=== PATIENT | female | born 1965 | race Two or more races ===

== ENCOUNTER 2023-08-15 15:42 | Emergency (ER) | payer OTHER ==
[~2023-08-15] VITALS: PULSE 86; RESP 18; TEMP 98.2; Ht 167.6 cm; Wt 149.0 kg
[2023-08-15] MEDS ORDERED: SODIUM CHLORIDE 0.9% 500 ML IVB ONE (16:15)
[2023-08-15] MEDS ORDERED: SODIUM CHLORIDE 0.9% 1,000 ML IV ONE (16:15)
[2023-08-15 16:37] LABS: Basophils # (auto) 0.1 10 ^3/uL (0-0.2); Basophils % (auto) 0.5 % (0.0-2.0); Eosinophils # (auto) 0.1 10 ^3/uL (0-0.8); Eosinophils % (auto) 0.5 % (0.0-7.0); Hematocrit 51.5 % (36.0-46.0); Hemoglobin 17.4 g/dL (12.2-16.2); Lymphocytes # (auto) 1.7 10 ^3/uL (0.4-5.4); Lymphocytes % (auto) 15.5 % (10.0-50.0); Mean Corpuscular Hgb Conc. 33.7 g/dL (32.0-36.0); Monocytes # (auto) 0.9 10 ^3/uL (0-1.3); Monocytes % (auto) 7.9 % (0.0-12.0); Neutrophils # (auto) 8.3 10 ^3/uL (1.6-8.6); Neutrophils % (auto) 75.6 % (37.0-80.0); Nucleated Red Blood Cells % 0.7 %; Red Blood Cells 5.79 10^6/uL (4.0-5.20)
[2023-08-15 17:06] LABS: Anion Gap 8 (5-15); Lipase 46 U/L (12-53)
[2023-08-15 17:17] LABS: Alkaline Phosphatase 67 U/L (46-116); Aspartate Aminotransferase 56 U/L (13-40); Blood Urea Nitrogen 9 mg/dL (9-23); Carbon Dioxide 26 mmol/L (20-30); Chloride 104 mmol/L (98-107); Glucose 115 mg/dL (74-106); Potassium 3.8 mmol/L (3.5-5.1); Sodium 138 mmol/L (136-145)
[2023-08-15 17:18] LABS: Alanine Aminotransferase 77 U/L (7-40); BUN/Creatinine Ratio 9.7 (10.0-20.0); Bilirubin, Total 1.7 mg/dL (0.2-1.0); Calcium 10.4 mg/dL (8.7-10.4); Total Protein 8.3 g/dL (5.7-8.2)
[2023-08-15] MEDS ORDERED: IOHEXOL 300 MG/ML 100ML BOTTLE IJ ONE (20:10)
[2023-08-15 20:29] LABS: Urine Bacteria MANY /hpf (None Seen); Urine Blood Negative /uL (Negative); Urine Clarity CLOUDY (Clear); Urine Color Yellow (Yellow); Urine Mucus FEW (None Seen); Urine Protein, UAD 1+ (Negative); Urine WBC 23 /hpf (0 - 5); Urine WBC Clumps PRESENT /hpf (None Seen); Urine pH 5.5 (5.0-8.0)
[2023-08-15 20:50] VITALS: TEMP 98.2; O2SAT 94
[2023-08-15] MEDS: METOCLOPRAMIDE HCL 5MG/ml INJ 2ml VIAL IV ONE (21:00)
[2023-08-15] MEDS: MORPHINE SULFATE 4 MG/ML SYR/VIAL IV ONE ×2 (21:00→21:01)
[2023-08-15] MEDS ORDERED: NITR-87 PO (21:02)
[2023-08-15] MEDS ORDERED: NITROFURANTOIN 100 mg CAP PO ONE (21:15)
== END 2023-08-15 21:09 | disposition home or self-care (01) ==
LOC: ER 15:42
DX: K80.50 Calculus of bile duct without cholangitis or cholecystitis without obstruction (principal); N39.0 Urinary tract infection, site not specified; R53.1 Weakness; R63.0 Anorexia; R74.8 Abnormal levels of other serum enzymes; I10 Essential (primary) hypertension; E66.01 Morbid (severe) obesity due to excess calories; F17.210 Nicotine dependence, cigarettes, uncomplicated; Z98.890 Other specified postprocedural states; Z68.43 Body mass index [BMI] 50.0-59.9, adult; Z88.0 Allergy status to penicillin
CPT/HCPCS: 36415; 71045; 74177; 80053; 81001; 82962; 83690; 83735; 85025; 93005; 96360; 99285; J2270; J2765; J7040; Q9967